=== PATIENT | female | born 1945 | race Two or more races ===

== ENCOUNTER 2024-12-03 11:54 | Outpatient (CLI) | payer MEDICAID ==
[2024-12-03 12:38] LABS: Basophils # (auto) 0.1 10 ^3/uL (0-0.2); Basophils % (auto) 0.4 % (0.0-2.0); Eosinophils # (auto) 0.2 10 ^3/uL (0-0.8); Eosinophils % (auto) 1.2 % (0.0-7.0); Hematocrit 42.9 % (36.0-46.0); Hemoglobin 13.9 g/dL (12.2-16.2); Lymphocytes # (auto) 3.5 10 ^3/uL (0.4-5.4); Lymphocytes % (auto) 27.6 % (10.0-50.0); Mean Corpuscular Hemoglobin 27.8 pg (28.0-32.0); Mean Corpuscular Hgb Conc. 32.5 g/dL (32.0-36.0); Mean Corpuscular Volume 85.5 fL (80.0-100.0); Monocytes # (auto) 1.1 10 ^3/uL (0-1.3); Monocytes % (auto) 8.9 % (0.0-12.0); Neutrophils # (auto) 7.8 10 ^3/uL (1.6-8.6); Neutrophils % (auto) 61.9 % (37.0-80.0); Nucleated Red Blood Cells % 0.1 %; Platelet Count (auto) 264 10^3/uL (140-450); Red Blood Cells 5.01 10^6/uL (4.0-5.20); White Blood Cell 12.6 10^3/uL (4.4-10.8)
[2024-12-03 12:51] LABS: Alanine Aminotransferase 16 U/L (7-40); Anion Gap 6 (5-15); BUN/Creatinine Ratio 25.7 (10.0-20.0); Blood Urea Nitrogen 19 mg/dL (9-23); Calcium 9.9 mg/dL (8.7-10.4); Carbon Dioxide 29 mmol/L (20-31); Cholesterol 155 mg/dL (< 200); Glucose 84 mg/dL (74-106); LDL Cholesterol 72 mg/dL (< 100); Potassium 3.8 mmol/L (3.5-5.1); Sodium 143 mmol/L (136-145); Triglycerides 115 mg/dL (< 150)
[2024-12-03 12:59] LABS: Aspartate Aminotransferase 12 U/L (13-40); Chloride 108 mmol/L (98-107); HDL Cholesterol 62 mg/dL (40-59)
[2024-12-03 15:18] LABS: Urine Bacteria FEW /hpf (None Seen); Urine Blood Negative /uL (Negative); Urine Clarity Clear (Clear); Urine Color Yellow (Yellow); Urine Protein, UAD Negative (Negative); Urine Squamous Epithelial Cell FEW /hpf (<5); Urine Urobilinogen Normal (Negative); Urine WBC 6 /HPF (0-5); Urine pH 5.5 (5.0-9.0)
[2024-12-04 08:07] LABS: Free Thyroxine Index 2.3 (1.2-4.9)
== END 2024-12-03 17:00 | disposition home or self-care (01) ==
LOC: LAB 11:54
PROVIDERS: ATTEND Specialist
DX: S46.001A Unspecified injury of muscle(s) and tendon(s) of the rotator cuff of right shoulder, initial encounter (principal); E11.40 Type 2 diabetes mellitus with diabetic neuropathy, unspecified; J44.9 Chronic obstructive pulmonary disease, unspecified; I25.10 Atherosclerotic heart disease of native coronary artery without angina pectoris; E55.9 Vitamin D deficiency, unspecified; H40.003 Preglaucoma, unspecified, bilateral; M41.9 Scoliosis, unspecified; M79.673 Pain in unspecified foot; Z12.11 Encounter for screening for malignant neoplasm of colon; Z12.31 Encounter for screening mammogram for malignant neoplasm of breast; Z13.1 Encounter for screening for diabetes mellitus; Z13.220 Encounter for screening for lipoid disorders; Z00.01 Encounter for general adult medical examination with abnormal findings; X58.XXXA Exposure to other specified factors, initial encounter; Y93.89 Activity, other specified; Y92.89 Other specified places as the place of occurrence of the external cause; Y99.8 Other external cause status
CPT/HCPCS: 36415; 80048; 80061; 81001; 82306; 82607; 84443; 84450; 84460; 85025

== ENCOUNTER 2025-04-09 09:15 | Outpatient (CLI) | payer MEDICAID ==
[~2025-04-09] VITALS: Ht 154.9 cm; Wt 52.6 kg
[2025-04-09] MEDS: REGADENOSON 0.4 MG/5 ML SYRG IV ONE ×2 (10:54)
[2025-04-09] MEDS ORDERED: ONDANSETRON ODT 4 MG TAB PO ONE (11:15)
[2025-04-09] MEDS ORDERED: ONDANSETRON ODT 4 MG TAB ONE (11:22)
--- NOTE | 2025-04-12 08:47 | DVHSR ---
APPROVED REPORT Exam: Nuclear Stress Test Indication: CAD BMI: 0 Stress Test Details Stress Test: Pharmacologic stress testing performed using 0.4 mg of regadenoson per 5 mL given IV ov er 10 seconds. HR Resting HR: 57 bpmMax Heart Rate (APMHR): 142.893041 bpm Max HR Achieved: 103 bpmTarget HR (85% APMHR): 120.358042 bpm % of APMHR: 72.54 Recovery HR: 70 bpm BP Resting BP: 180/69 mmHg Recovery BP: 194/80 mmHg ECG Resting ECG: Sinus Bradycardia Recovery ECG: Sinus Rhythm Clinical Reason for Termination: Completed protocol Nurse Comments Recieved pt. from [facility]. A/Ox4 on RA. Connected to registered nurse cardiac telemetry, VS stable. Rt IV flushes well. Reviewed POC. Pt. verbalized understanding of procedure including risks and side effects, agrees for stress testing. Lexiscan stress test performed per protocol. [facility] administered [facility]. Transferred to [facility]. See EHR for additional documentation. Patient was advised to return to ER is symptoms return. P atient denied symptoms upon completion of exam. Stress ECG Conclusion lvef 56% normal perfusion scan no severe ischemia noted NM EXAM: Myocardial Perfusion REST/STRESS Imaging Protocol: Rest Tc-99m/Stress Tc-99m 1 day Resting Data Rest SPECT myocardial perfusion imaging was performed in supine position 60 minutes following the int ravenous injection of 10.2 mCi of Tc-99m Sestamibi. Time of rest injection: 10:00 Date: 04/09/2025 Time of rest imagin:00 Date: 04/09/2025 Administration Route: IV Administration Site: Right Arm Pharmacologic Stress Pharmacologic stress test was performed by injecting Regadenoson 0.4 mg IV push followed by the intra venous injection of 28.2 mCi of Tc-99m Sestamibi. Time of stress injection: 10:54 Date: 04/09/2025 Time of stress imagin:54 Date: 04/09/2025 Administration Route: IV Administration Site: Right Arm Gated Stress SPECT was performed 60 minutes after stress injection. The images were gated to evaluate regional wall motion and calculate left ventricular ejection fracti on. Stress only was performed in the Supine position. Nuclear Conclusion Nuclear Findings: negative for ischemia lvef 56% normal perfusion scan no severe ischemia noted
== END 2025-04-09 17:00 | disposition home or self-care (01) ==
LOC: XYW 09:15
PROVIDERS: ATTEND Internal Medicine
DX: I10 Essential (primary) hypertension (principal); R00.1 Bradycardia, unspecified; I25.10 Atherosclerotic heart disease of native coronary artery without angina pectoris; R42 Dizziness and giddiness
CPT/HCPCS: 78452; 82962; 93017; A9500; J2785; Q0162

== ENCOUNTER 2025-06-11 15:35 | Inpatient (IN) | payer MEDICAID ==
[~2025-06-11] VITALS: Ht 160 cm; Wt 56.1 kg
[2025-06-11 16:37] LABS: Hematocrit 41.3 % (36.0-46.0); Hemoglobin 13.5 g/dL (12.2-16.2); Mean Corpuscular Hemoglobin 28.5 pg (28.0-32.0); Mean Corpuscular Volume 87.3 fL (80.0-100.0); Nucleated Red Blood Cells % 0.0 %
--- NOTE | 2025-06-11 16:38 | DVH ---
EXAM: CT CT AB PEL WO CON-NO ORAL OR IV HISTORY: lower abd pain Comparison Study: None Exam Date: 06/11/2025 04:06 PM Radiation Dose Information: CT Dose: CTDI volume is 5 mGy. Dose-length product is 248 mGy*cm TECHNIQUE: Multidetector CT of the abdomen and pelvis was performed. Imaging was performed without IV contrast. Axial, coronal and sagittal multiplanar reformats were obtained from the axial data set by the technologist. FINDINGS: Lack of intravenous contrast compromises evaluation of perfusion and for isodense lesions. Lower chest: Bibasilar atelectasis/scarring. Liver: Unremarkable Biliary system: Surgically absent gallbladder Spleen: Unremarkable Pancreas: Unremarkable. Adrenals: Unremarkable. Kidneys and ureters: No hydronephrosis. Punctate nonobstructing left renal calculus. Bowel: No obstruction. Irregular wall thickening of the sigmoid colon. Mild wall thickening of the ascending colon. Scattered colonic diverticula. Bladder: Unremarkable Reproductive organs: No abnormal mass. Lymph nodes: Unremarkable. Peritoneum: Unremarkable Vessels: Patency not evaluated on this noncontrast study. Bones and soft tissue: No aggressive osseous lesion IMPRESSION: Mild wall thickening of the ascending colon and irregular wall thickening of the sigmoid colon. These may be infectious / inflammatory or related to previous diverticulitis. However, given irregular masslike thickening in the sigmoid colon, colonoscopy should be obtained as outpatient to exclude underlying mass. Small nonobstructing left renal calculus.
[2025-06-11 16:58] LABS: Alanine Aminotransferase 12 U/L (7-40); Albumin 4.3 g/dL (3.2-4.8); Alkaline Phosphatase 106 U/L (46-116); Anion Gap 14 (5-15); BUN/Creatinine Ratio 25.9 (10.0-20.0); Blood Urea Nitrogen 14 mg/dL (9-23); Calcium 9.1 mg/dL (8.7-10.4); Carbon Dioxide 23 mmol/L (20-31); Chloride 105 mmol/L (98-107); Lipase 26 U/L (12-53); Potassium 3.8 mmol/L (3.5-5.1); Sodium 142 mmol/L (136-145); Total Protein 7.1 g/dL (5.7-8.2)
[2025-06-11 16:59] LABS: Bilirubin, Total 0.5 mg/dL (0.2-1.0)
[2025-06-11 17:01] LABS: Lactic Acid w/Reflex 2.6 mmol/L (0.4-2.0)
[2025-06-11 17:02] LABS: Glucose 134 mg/dL (74-106)
--- NOTE | 2025-06-11 17:05 | ED.PDOC ---
GI ASSESSMENT HPI Comments HPI: 79 year-old female presents to the ED with a chief complaint of intermittent lower abdominal pain as of 05/27/25. Patient reports associated symptoms of N/V as of today. Patients last BM was today, just hours ago. Patient reports taking HTN and DM medication daily, as prescribed. There are no further complaints or modifying factors at this time. Patient denies symptoms of hematemesis, weakness, fever, chills, or diarrhea. Initial Vitals BP: 202/76 HR: 92 RR: 24 O2: 95 Temp: 98.1 Past Medical History: DM, HTN Past Surgical History: Hysterectomy Social History: Smoking Cigarettes Medications: Losartan, Clonidine, Amlodipine, Aspirin, Metformin Allergies: NKA straw, laina: gen abd pain, n/v as bowel movement was here in the ED normal in color. States compliance with the medications. Patient was slightly hypertensive at the scene. HPI: Poor Historian. REVIEW OF SYSTEMS: CONSTITUTIONAL: Denies acute: fever, diaphoresis, chills, generalized weakness. HEAD: Denies acute: headache, photophobia Eyes: Denies acute: Double vision, vision loss, eye pain, eye discharge. EARS: Denies acute: tinnitus, hearing loss, ear discharge, ear pain, THROAT: Denies acute: sore throat, swelling, difficulty swallowing , pain with swallowing, change in voice. NECK: Denies acute: neck pain, neck swelling, stiff neck. HEART: Denies acute : chest pain, palpitations, LUNGS: Denies acute: SOB, wheezing, cough, hemoptysis ABDOMEN: Denies acute: diarrhea, melena , hematemesis, hematochezia SKIN: Denies acute: rash, redness, lesions, itchiness. EXTREMITIES: Denies acute: calf pain, numbness, tingling, weakness, denies pain in extremity. Denies acute: Low back pain. Neuro: Denies acute: focal neurological deficit, motor or sensory focal neurological deficit, tremors, seizure like activity, confusion, dizziness, change in mental status, loss of bowel or bladder function, cauda equina like symptoms. : Denies acute: dysuria, hematuria, flank pain, increase in urinary frequency. PSYCH: Denies acute: hallucination, suicidal ideation, homicidal ideation. FEMALE: Denies acute: abnormal vaginal bleeding, foul odor, unusual discharge. PHYSICAL EXAM: General: -----moderate---acute distress, awake and alert. Head: normocephalic, atraumatic. No raccoon's eyes, no power sign. Neck: supple, trachea is midline, no swelling. Throat: Normal phonation. Eyes:, no erythema, no purulent discharge, no proptosis, no icterus. Heart: regular rate, regular rhythm, no significant murmur appreciated. Lungs: no apparent respiratory distress, Able to speak in full sentences. No wheezing, no rhonchi, no crackles. No stridors Clear to auscultation bilaterally. Abdomen: Generalized tender to palpation, non distended, soft, no guarding, no rebound, + bowel sounds. Neuro: Awake, Alert, oriented to name, self, situation, follows commands GCS=15. Speech is normal. Skin: no petechia, no purpura, no cyanosis, non-pale, not jaundice. Lower extremities: --no - Pitting edema no deformity, no focal swelling, no calf TTP. Makes eye contact. moves all four extremities. Face: no apparent facial droop. Ambulating in the ED independently. ED COURSE: DISCLAIMER: This medical document was created using an electronic medical record system with voice recognition software and computerized dictation system. Although this document has been carefully reviewed, there might still be some phonetic and typographical errors. Occasional wrong-word or "sound-alike" substitutions may have occurred due to the inherent limitations of voice recognition software. These areas are purely typographical due to imperfections of the software programs and do not reflect any compromise in the patient's medical care. Please read the chart carefully and recognize, using context, where these substitutions have occurred. Chief Complaint: Abdominal Pain Time Seen by MD: 16:25 Reviewed Notes: Medications, Allergies Allergies: Coded Allergies: NO KNOWN ALLERGIES (Unverified , 04/09/25) Information Source: Patient Mode of Arrival: Ambulatory Timing: Weeks Duration: Since onset Severity: Moderate Associated sign and symptoms: Nausea, Vomiting, Abdominal Pain Past Medical History PAST MEDICAL HISTORY: DM, HTN Surgical History: Hysterectomy NAPPER FIXER History: Denies all NAPPER FIXER Hx Social History Smoker: Quit Greater Than 1 Year Alcohol: Denies ETOH Use Drugs: Denies Drug Use Lives In: Home Was a procedure done? Was a procedure done?: No GI differential Dx Differential Diagnosis: Constipation, Gastritis/PUD, Gastroenteritis, Inflammatory BD, UTI, Dehydration, Food Poisoning, Bacterial, Parasitic, Viral, Other (DDX include Diverticulitis, colitis, gastroenteritis, acute abdomen, SBO, enteritis, constipation, volvulus, appendicitis, Gallbladder disease, choledocolithiasis, ascending cholangitis, pancreatitis, intraAbdominal mass/neoplasm, hepatitis, UTI, pylonephritis, kidney stone, aneurysm, dissection, Inflammatory bowel disease, gastroparesis, ischemic bowel,,,,,,Food poisoning, bacterial/parasitic/viral etiology, trauma, diabetes DKA ) X-Ray, Labs, Meds, VS Vital Signs Date Time Temp Pulse Resp B/P (MAP) Pulse Ox O2 Delivery O2 Flow Rate FiO2 06/11/25 20:58 209/97 06/11/25 20:35 83 20 97 Room Air 06/11/25 20:35 98.7 89 20 209/97 (134) 96 98.7 06/11/25 15:41 98.1 92 24 202/76 95 98.1 Lab Test 06/11/25 19:04 06/11/25 17:46 06/11/25 17:09 06/11/25 16:15 Range/Units Lactic Acid Level 1.4 2.6 *H 0.4-2.0 mmol/L Troponin I High Sensitivity 3 L 4 3 L </=34 ng/L Urine Color Yellow Yellow Urine Clarity Clear Clear Urine pH 6.0 5.0-9.0 Urine Specific [place]ley 1.026 1.001-1.035 Urine Protein 1+ H Negative Urine Ketones 1+ H Negative Urine Blood Negative Negative /uL Urine Nitrite Negative Negative Urine Bilirubin Negative Negative Urine Urobilinogen 4 H Negative mg/dL Urine Leukocyte Esterase 2+ Negative /uL Urine RBC 2 0 - 4 /hpf Urine Microscopic WBC 3 0-5 /HPF Urine Squamous Epithelial Cells Few <5 /hpf Urine Bacteria Few H None Seen /hpf Urine Mucus Few None Seen Urine Glucose Normal Normal mg/dL White Blood Count 21.4 H 4.4-10.8 10^3/uL Red Blood Count 4.74 4.0-5.20 10^6/uL Hemoglobin 13.5 12.2-16.2 g/dL Hematocrit 41.3 36.0-46.0 % Mean Corpuscular Volume 87.3 80.0-100.0 fL Mean Corpuscular Hemoglobin 28.5 28.0-32.0 pg Mean Corpuscular Hemoglobin Concent 32.7 32.0-36.0 g/dL Red Cell Distribution Width 13.5 11.8-14.3 % Platelet Count 355 140-450 10^3/uL Mean Platelet Volume 9.6 6.9-10.8 fL Neutrophils (%) (Auto) 91.3 H 37.0-80.0 % Lymphocytes (%) (Auto) 5.1 L 10.0-50.0 % Monocytes (%) (Auto) 3.4 0.0-12.0 % Eosinophils (%) (Auto) 0.1 0.0-7.0 % Basophils (%) (Auto) 0.1 0.0-2.0 % Neutrophils # (Auto) 19.6 H 1.6-8.6 10 ^3/uL Lymphocytes # (Auto) 1.1 0.4-5.4 10 ^3/uL Monocytes # (Auto) 0.7 0-1.3 10 ^3/uL Eosinophils # (Auto) 0 0-0.8 10 ^3/uL Basophils # (Auto) 0 0-0.2 10 ^3/uL Nucleated Red Blood Cells 0.0 % Prothrombin Time 11.3 9.3-11.8 sec Prothrombin Time INR 1.07 0.9-1.15 Activated Partial Thromboplast Time 29.7 24.5-34.5 SEC Sodium Level 142 136-145 mmol/L Potassium Level 3.8 3.5-5.1 mmol/L Chloride Level 105 98-107 mmol/L Carbon Dioxide Level 23 20-31 mmol/L Anion Gap 14 5-15 Blood Urea Nitrogen 14 9-23 mg/dL Creatinine 0.54 L 0.550-1.02 mg/dL Glomerular Filtration Rate Calc 94 >90 mL/min BUN/Creatinine Ratio 25.9 H 10.0-20.0 Serum Glucose 134 H 74-106 mg/dL Calcium Level 9.1 8.7-10.4 mg/dL Total Bilirubin 0.5 0.2-1.0 mg/dL Aspartate Amino Transferase (AST) 23 13-40 U/L Alanine Aminotransferase (ALT) 12 7-40 U/L Alkaline Phosphatase 106 46-116 U/L Total Protein 7.1 5.7-8.2 g/dL Albumin 4.3 3.2-4.8 g/dL Lipase 26 12-53 U/L Current Medications Medications (Trade) Dose Ordered Sig/Yamil Route Start Time Stop Time Status Last Admin Lactated Ringer's 1,550 ml @ 1,000 mls/hr ONCE ONCE IV 06/11/25 18:30 06/11/25 20:02 DC 06/11/25 18:30 Vancomycin HCl 250 ml @ 250 mls/hr ONCE ONCE IV 06/11/25 19:30 06/11/25 20:29 DC 06/11/25 21:11 Clonidine HCl (Catapres Tablet) 0.2 mg ONCE ONCE PO 06/11/25 19:45 06/11/25 20:20 DC 06/11/25 20:58 Acetaminophen/ Hydrocodone Bitart (Meridian 5/325MG Tab) 1 tab Q4HP PRN PO 06/11/25 19:45 06/11/25 20:58 Ondansetron HCl (Zofran) 4 mg Q4HP PRN IV 06/11/25 19:45 06/11/25 21:11 [place] [address] Ph: [phone] DIAGNOSTIC IMAGING Diagnostic Imaging Report : [id number] Signed PATIENT: LAINA FIGUEROA ACCT: [id number] UNIT: [id number] : 1945 LOC: ER ROOM / BED: / AGE / SEX: 79 / F ADM STATUS: REG ER SERVICE 1559 ORDERING PHYSICIAN: JOSÉ MIGUEL ABRAHAM DO PROCEDURE(s): ABPL - CT AB PEL WO CON-NO ORAL OR IV REASON: lower abd pain ORDER NUMBER(s): [id number], ACCESSION NUMBER(s): [id number] EXAM: CT CT AB PEL WO CON-NO ORAL OR IV HISTORY: lower abd pain Comparison Study: None Exam Date: 06/11/2025 04:06 PM Radiation Dose Information: CT Dose: CTDI volume is 5 mGy. Dose-length product is 248 mGy*cm TECHNIQUE: Multidetector CT of the abdomen and pelvis was performed. Imaging was performed without IV contrast. Axial, coronal and sagittal multiplanar reformats were obtained from the axial data set by the technologist. FINDINGS: Lack of intravenous contrast compromises evaluation of perfusion and for isodense lesions. Lower chest: Bibasilar atelectasis/scarring. Liver: Unremarkable Biliary system: Surgically absent gallbladder Spleen: Unremarkable Pancreas: Unremarkable. Adrenals: Unremarkable. Kidneys and ureters: No hydronephrosis. Punctate nonobstructing left renal calculus. Bowel: No obstruction. Irregular wall thickening of the sigmoid colon. Mild wall thickening of the ascending colon. Scattered colonic diverticula. Bladder: Unremarkable Reproductive organs: No abnormal mass. Lymph nodes: Unremarkable. Peritoneum: Unremarkable Vessels: Patency not evaluated on this noncontrast study. Bones and soft tissue: No aggressive osseous lesion IMPRESSION: Mild wall thickening of the ascending colon and irregular wall thickening of the sigmoid colon. These may be infectious / inflammatory or related to previous diverticulitis. However, given irregular masslike thickening in the sigmoid colon, colonoscopy should be obtained as outpatient to exclude underlying mass. Small nonobstructing left renal calculus. ATED BY: REYES MUÑIZ MD DICTATED DATE/TIME: 06/11/251635 SIGNED BY: REYES MUÑIZ MD SIGNED DATE/TIME: 06/11/25 163 CC: [place] [address] Ph: [phone] DIAGNOSTIC IMAGING Diagnostic Imaging Report : [id number] Signed PATIENT: LAINA FIGUEROA ACCT: [id number] UNIT: [id number] : 1945 LOC: ER ROOM / BED: / AGE / SEX: 79 / F ADM STATUS: REG ER SERVICE 20 ORDERING PHYSICIAN: JOSÉ MIGUEL ABRAHAM DO PROCEDURE(s): CXRP - CHEST PORTABLE REASON: sepsis ORDER NUMBER(s): [id number], ACCESSION NUMBER(s): [id number] CHEST RADIOGRAPH INDICATION: sepsis TECHNIQUE: Single frontal view of the chest was obtained COMPARISON: None FINDINGS: Lines and Tubes: None Lungs: No focal consolidation. Eventration of the right hemidiaphragm. Pleura: No effusion. No pneumothorax. Cardiomediastinal contours: Unremarkable. [id number] atherosclerotic calcification uncoiling of the aorta. Bones: No acute osseous abnormality. IMPRESSION: No acute cardiopulmonary disease. ATED BY: ASHLEY COPE DO DICTATED DATE/TIME: 06/11/251853 SIGNED BY: ASHLEY COPE DO SIGNED DATE/TIME: 06/11/251853 CC: Time of 1ST Reevaluation: 17:32 Reevaluation 1ST: Unchanged Patient Education/Counseling: Diagnosis, Treatment Family Education/Counseling: No Family Present Comments MDM: patient presented with the above HPI.-abdominal pain-----workup was initiated. patient was found with the above mentioned diagnosis. the following medications were ordered: please refer to order lists of meds and tests obtained by myself Dr. Abraham. Patient ED course and VS have been stabilized. Patient has been reassessed in the ED and remained in a stable condition. Pertinent incidental findings were discussed with the patient and/or family. Patient/family voices understanding and is agreeable with plan. Patient has been observed in the ED adequate length of time to insure i mprovement/stability. Escalation of care considered: Consideration of escalation to observation or admission Patient was ADMITTED to the medicine team for further evaluation and treatment of their presentation. Sepsis protocol was initiated. All the reports of any imaging studies that were ordered by myself were reviewed by myself. Departure 1 Departure Time of Disposition: 19:56 Impression: Primary Impression: UTI (urinary tract infection) Additional Impressions: Sepsis Abdominal pain Leukocytosis Abnormal finding on CT scan Mass of colon Disposition: ADMITTED INPATIENT Admit to: [facility] Condition: Guarded Discharged With: Self Critical Care Note Critical Care Time?: Yes (35 min-critical care time only) Critical care comment: Due to a high probability of clinically significant, life threatening deterioration, the patient required my highest level of preparedness to intervene emergently and I personally spent this critical care time directly and personally managing the patient. This critical care time included obtaining a history; examining the patient; pulse oximetry; ordering and review of studies; arranging urgent treatment with development of a management plan; evaluation of patient's response to treatment; frequent reassessment; and, discussions with other providers. This critical care time was performed to assess and manage the high probability of imminent, life-threatening deterioration that could result in multi-organ failure. It was exclusive of separately billable procedures and treating other patients and teaching time. Please see my other sections and the rest of the note for further information on patient assessment and treatment. I personally scribed for JOSÉ MIGUEL ABRAHAM DO ([email or web address]) on 06/11/25 at 17:05. Electronically submitted by Jessica Rivas ([employer]). I personally scribed for JOSÉ MIGUEL ABRAHAM J DO ([email or web address]) on 06/11/25 at 17:19. Electronically submitted by Jessica Rivas ([employer]). I personally scribed for JOSÉ MIGUEL ABRAHAM J DO ([email or web address]) on 06/11/25 at 18:23. Electronically submitted by Tri Mccarty ([employer]). I personally scribed for JOSÉ MIGUEL ABRAHAM J DO ([email or web address]) on 06/11/25 at 20:23. Electronically submitted by Tri Mccarty ([employer]). I personally scribed for JOSÉ MIGUEL ABRAHAM J DO ([email or web address]) on 06/11/25 at 20:41. Electronically submitted by Tri Mccarty ([employer]). JOSÉ MIGUEL ABRAHAM DO Jun 11, 2025 17:05
[2025-06-11 18:19] LABS: Urine Protein, UAD 1+ (Negative)
[2025-06-11] MEDS: LACTATED RINGER'S 1,550 ML IV ONE (18:30)
[2025-06-11 18:45] LABS: INR 1.07 (0.9-1.15); Partial Thromboplastin Time 29.7 SEC (24.5-34.5); Prothrombin Time 11.3 sec (9.3-11.8)
--- NOTE | 2025-06-11 18:56 | DVH ---
CHEST RADIOGRAPH INDICATION: sepsis TECHNIQUE: Single frontal view of the chest was obtained COMPARISON: None FINDINGS: Lines and Tubes: None Lungs: No focal consolidation. Eventration of the right hemidiaphragm. Pleura: No effusion. No pneumothorax. Cardiomediastinal contours: Unremarkable. [id number] atherosclerotic calcification uncoiling of the aorta. Bones: No acute osseous abnormality. IMPRESSION: No acute cardiopulmonary disease.
[2025-06-11] MEDS: VANCOMYCIN 1GM/250ML KIT 250 ML IV ONE (19:30)
[2025-06-11] MEDS ORDERED: ACETAMINOPHEN 325 MG TAB PO PRN (19:45)
[2025-06-11] MEDS ORDERED: DOCUSATE SOD 100 MG CAP PO PRN (19:45)
[2025-06-11] MEDS ORDERED: DEXTROSE (50%) 50ML SYRG IV PRN (19:45)
[2025-06-11] MEDS: HYDROcodone-ACET 5/325MG TAB PO PRN (20:58)
[2025-06-11] MEDS: ONDANSETRON HCL 4 MG/2 ML VIAL IV PRN (21:11)
[2025-06-11] MEDS: MORPHINE SULFATE INJ 2 MG/ml SYRG IV ONE (21:30)
[2025-06-11] MEDS ORDERED: MORPHINE SULFATE INJ 2 MG/ml SYRG IV PRN (21:30)
[2025-06-11] MEDS ORDERED: NITROGLYCERIN 0.4 MG SL TAB SL PRN (21:30)
--- NOTE | 2025-06-11 21:30 | DVHHP2 ---
History of Present Illness Reason for Visit: Sepsis, unspecified organism History of Present Illness The patient is a 79 years old female with past medical history of diabetes mellitus and hypertension who presented to [facility] ED with complaint of acute abdominal pain. Patient reports that she has been experien cing intermittent abdominal pain associated with nausea, vomiting, chest pain, rating 710 numeric scale, getting worse that prompted this visit. Patient was seen and evaluated in the ED, laboratory data shows WBC 21.4, platelets 355, sodium 142, potassium 3.8, BUN 14, creatinine 0.54, GFR 94, glucose 134, calcium 9.1, lactic acid 2.6 trending down to 1.4, troponin 4, lipase 26, blood pressure 202/76 trending down to 164/73, heart rate 92, temperature 98.1 F, O2 saturation 97% on room air. Urinalysis positive for urinary tract infection. Abdomen/pelvis CT revealing mild wall thickening of the ascending colon and irregular wall thickening of the sigmoid colon; this may be infectious/inflammatory or related to previous diverticulitis. Patient was started on IV antibiotic regimen cefepime, please see medication orders section in the computer. On my assessment, daughter at bedside, patient denied chest pain at this moment, no headache, dizziness, diaphoresis, shortness of breaths, no diarrhea, nausea, vomiting, fever, no chills. Patient was admitted for further evaluation and medical management. Past Medical History DM, HTN Past Surgical History Hysterectomy Family History Reviewed, noncontributory to the management of this case. Past Social History The patient lives at home, denies smoking, alcohol or illicit drugs abuse. Review of Systems Constitutional: Yes: Weakness; No: Fever, Chills, Sweats, Malaise, Other Eyes: No: Pain, Vision change, Conjunctivae inflammation, Eyelid inflammation, Other, Redness ENT: No: Ear pain, Ear discharge, Nose pain, Nose discharge, Nose congestion, Mouth pain, Mouth swelling, Throat pain, Throat swelling, Other Respiratory: No: Cough, Dry, Shortness of breath, SOB with excertion, Wheezing, Hemoptysis, Pleuritic Pain, Sputum, Wheezing, Other Cardiovascular: Chest Pain; No: Palpitations, Orthopnea, Paroxysmal Noc. Dyspnea, Edema, Lt Headedness, Other Gastrointestinal: Nausea, Vomiting, Abdominal Pain; No: Diarrhea, Constipation, Melena, Hematochezia, Other Genitourinary: No Dysuria, No Frequency, No Incontinence, No Hematuria, No Retention, No Other Musculoskeletal: No: other, neck pain, shoulder pain, arm pain, back pain, hand pain, leg pain, foot pain Skin: No: Rash, Lesions, Jaundice, Bruising, Other Neurological: No: Weakness, Numbness, Incoordination, Change in speech, Confusion, Seizures, Other Allergies: Coded Allergies: NO KNOWN ALLERGIES (Unverified , 04/09/25) Medications Current Medications Medications Dose Ordered Sig/Yamil Route Start Time Stop Time Status Last Admin Dose Admin Ceftriaxone Sodium 50 ml @ 100 mls/hr DAILY@09 IV 06/12/25 09:00 Metronidazole 100 ml @ 100 mls/hr Q8HR IV 06/11/25 22:00 Clonidine HCl 0.1 mg Q4HP PRN PO 06/11/25 19:45 Metoprolol Tartrate 25 mg BID PO 06/11/25 22:00 Amlodipine Besylate 5 mg DAILY PO 06/12/25 10:00 Diagnostic Test (Pha) 1 strip ACHS 06/11/25 22:00 Insulin Human Regular ACHS SC 06/11/25 22:00 Dextrose 50 ml UD PRN IV 06/11/25 19:45 Sodium Chloride 10 ml Q8HR IV 06/11/25 22:00 Acetaminophen/ Hydrocodone Bitart 1 tab Q4HP PRN PO 06/11/25 19:45 06/11/25 20:58 1 TAB Ondansetron HCl 4 mg Q4HP PRN IV 06/11/25 19:45 06/11/25 21:11 4 MG Docusate Sodium 100 mg BIDPRN PRN PO 06/11/25 19:45 Acetaminophen 650 mg Q6HP PRN PO 06/11/25 19:45 Exam Vital Signs Vital Signs Date Time Temp Pulse Resp B/P (MAP) Pulse Ox O2 Delivery O2 Flow Rate FiO2 06/11/25 20:58 209/97 06/11/25 20:35 83 20 97 Room Air 06/11/25 20:35 98.7 98.7 General Appearance: Alert, Oriented X3, Cooperative, No acute distress HEENT: Atraumatic, PERRLA, EOMI, Mucous membr. moist/pink Respiratory: Normal air movement Cardiovascular: Regular rate, Normal S1, Normal S2, No murmurs Abdominal: Normal bowel sounds, Soft, No hepatospenomegaly, No masses, Other (Reports tenderness) Extremities: No clubbing, No cyanosis, No edema, Normal pulses, No tende rness/swelling Skin: No rashes, No significant lesion Neuro: Normal speech, Normal tone, Sensation intact, Cranial nerves 3-12 NL, Reflexes 2+, Other (Generalized weakness) Psych/Mental Status: Mental status NL, Mood NL Labs/Xrays Labs Test 06/11/25 19:04 06/11/25 17:46 06/11/25 16:15 Range/Units Lactic Acid Level 1.4 0.4-2.0 mmol/L Troponin I High Sensitivity 3 L </=34 ng/L Urine Color Yellow Yellow Urine Clarity Clear Clear Urine pH 6.0 5.0-9.0 Urine Specific [place] 1.026 1.001-1.035 Urine Protein 1+ H Negative Urine Ketones 1+ H Negative Urine Blood Negative Negative /uL Urine Nitrite Negative Negative Urine Bilirubin Negative Negative Urine Urobilinogen 4 H Negative mg/dL Urine Leukocyte Esterase 2+ Negative /uL Urine RBC 2 0 - 4 /hpf Urine Microscopic WBC 3 0-5 /HPF Urine Squamous Epithelial Cells Few <5 /hpf Urine Bacteria Few H None Seen /hpf Urine Mucus Few None Seen Urine Glucose Normal Normal mg/dL White Blood Count 21.4 H 4.4-10.8 10^3/uL Red Blood Count 4.74 4.0-5.20 10^6/uL Hemoglobin 13.5 12.2-16.2 g/dL Hematocrit 41.3 36.0-46.0 % Mean Corpuscular Volume 87.3 80.0-100.0 fL Mean Corpuscular Hemoglobin 28.5 28.0-32.0 pg Mean Corpuscular Hemoglobin Concent 32.7 32.0-36.0 g/dL Red Cell Distribution Width 13.5 11.8-14.3 % Platelet Count 355 140-450 10^3/uL Mean Platelet Volume 9.6 6.9-10.8 fL Neutrophils (%) (Auto) 91.3 H 37.0-80.0 % Lymphocytes (%) (Auto) 5.1 L 10.0-50.0 % Monocytes (%) (Auto) 3.4 0.0-12.0 % Eosinophils (%) (Auto) 0.1 0.0-7.0 % Basophils (%) (Auto) 0.1 0.0-2.0 % Neutrophils # (Auto) 19.6 H 1.6-8.6 10 ^3/uL Lymphocytes # (Auto) 1.1 0.4-5.4 10 ^3/uL Monocytes # (Auto) 0.7 0-1.3 10 ^3/uL Eosinophils # (Auto) 0 0-0.8 10 ^3/uL Basophils # (Auto) 0 0-0.2 10 ^3/uL Nucleated Red Blood Cells 0.0 % Prothrombin Time 11.3 9.3-11.8 sec Prothrombin Time INR 1.07 0.9-1.15 Activated Partial Thromboplast Time 29.7 24.5-34.5 SEC Sodium Level 142 136-145 mmol/L Potassium Level 3.8 3.5-5.1 mmol/L Chloride Level 105 98-107 mmol/L Carbon Dioxide Level 23 20-31 mmol/L Anion Gap 14 5-15 Blood Urea Nitrogen 14 9-23 mg/dL Creatinine 0.54 L 0.550-1.02 mg/dL Glomerular Filtration Rate Calc 94 >90 mL/min BUN/Creatinine Ratio 25.9 H 10.0-20.0 Serum Glucose 134 H 74-106 mg/dL Calcium Level 9.1 8.7-10.4 mg/dL Total Bilirubin 0.5 0.2-1.0 mg/dL Aspartate Amino Transferase (AST) 23 13-40 U/L Alanine Aminotransferase (ALT) 12 7-40 U/L Alkaline Phosphatase 106 46-116 U/L Total Protein 7.1 5.7-8.2 g/dL Albumin 4.3 3.2-4.8 g/dL Lipase 26 12-53 U/L PATIENT: LAINA FIGUEROA ACCT: [id number] UNIT: [id number] : 1945 LOC: ER ROOM / BED: / AGE / SEX: 79 / F ADM STATUS: REG ER SERVICE 1559 ORDERING PHYSICIAN: JOSÉ MIGUEL ABRAHAM DO PROCEDURE(s): ABPL - CT AB PEL WO CON-NO ORAL OR IV REASON: lower abd pain ORDER NUMBER(s): [id number], ACCESSION NUMBER(s): [id number] EXAM: CT CT AB PEL WO CON-NO ORAL OR IV HISTORY: lower abd pain Comparison Study: None Exam Date: 06/11/2025 04:06 PM Radiation Dose Information: CT Dose: CTDI volume is 5 mGy. Dose-length product is 248 mGy*cm TECHNIQUE: Multidetector CT of the abdomen and pelvis was performed. Imaging was performed without IV contrast. Axial, coronal and sagittal multiplanar reformats were obtained from the axial data set by the technologist. FINDINGS: Lack of intravenous contrast compromises evaluation of perfusion and for isodense lesions. Lower chest: Bibasilar atelectasis/scarring. Liver: Unremarkable Biliary system: Surgically absent gallbladder Spleen: Unremarkable Pancreas: Unremarkable. Adrenals: Unremarkable. Kidneys and ureters: No hydronephrosis. Punctate nonobstructing left renal calculus. Bowel: No obstruction. Irregular wall thickening of the sigmoid colon. Mild wall thickening of the ascending colon. Scattered colonic diverticula. Bladder: Unremarkable Reproductive organs: No abnormal mass. Lymph nodes: Unremarkable. Peritoneum: Unremarkable Vessels: Patency not evaluated on this noncontrast study. Bones and soft tissue: No aggressive osseous lesion IMPRESSION: Mild wall thickening of the ascending colon and irregular wall thickening of the sigmoid colon. These may be infectious/inflammatory or related to previous diverticulitis. However, given irregular masslike thickening in the sigmoid colon, colonoscopy should be obtained as outpatient to exclude underlying mass. Small nonobstructing left renal calculus. ORDERING PHYSICIAN: JOSÉ MIGUEL ABRAHAM DO PROCEDURE(s): CXRP - CHEST PORTABLE REASON: sepsis ORDER NUMBER(s): [id number], ACCESSION NUMBER(s): [id number] CHEST RADIOGRAPH INDICATION: sepsis TECHNIQUE: Single frontal view of the chest was obtained COMPARISON: None FINDINGS: Lines and Tubes: None Lungs: No focal consolidation. Eventration of the right hemidiaphragm. Pleura: No effusion. No pneumothorax. Cardiomediastinal contours: Unremarkable. [id number] atherosclerotic calcification uncoiling of the aorta. Bones: No acute osseous abnormality. IMPRESSION: No acute cardiopulmonary disease. SEPSIS Sepsis Screen Date sepsis recognized/suspect: Jun 11, 2025 Time Sepsis recognized/suspect: 2045 Recent Procedure: No On Antibiotic Therapy: No Respiratory Rate >20: No Heart Rate >90: No Temp<36 C (96.8 F) or >38.3 C: No SBP <90 or MAP <65 mmHG: No New Acute Mental Status Change: No Is the patient on CPAP, BIPAP,: No Physician Orders Breaker Table Worker (06/11/25 ) Ct Ab Pel Wo Con-No Oral Or Iv (06/11/25 15:59) Chest Portable (06/11/25 18:21) Accucheck (06/11/25 18:21) Blood Culture (06/11/25 18:21) Cefepime 1gm/50ml (Maxipime 1gm/50ml) (06/11/25 18:30) Notify Md If Map <65 Or Bp<90 (06/11/25 18:21) If Map<65 Start Vasopressor (06/11/25 18:21) Sepsis Reassesment After Fluid (06/11/25 19:21) Ceftriaxone 1gm/50ml (Rocephin) (06/12/25 09:00) Metronidazole 500mg/100ml (Flagyl 500mg/ (06/11/25 22:00) Urine Bacterial Culture (06/11/25 19:42) Clonidine Hcl Tablet (Catapres Tablet) (06/11/25 19:45) Metoprolol Tartrate Tablet (Lopressor Ta (06/11/25 22:00) Glucose Blood (Accu-Chek Comfort Curve T (06/11/25 22:00) Insulin R (Human) (Insulin R) (06/11/25 22:00) Dextrose 50% Syringe (06/11/25 19:45) Allergies (06/11/25 19:42) Code Status (06/11/25 19:42) Sodium Chloride Lock (Saline Lock Ns) (06/11/25 22:00) Oxygen Per Hour (06/11/25 19:42) Hydrocodone-Acet 5/325mg Tab ([place] 5/32 (06/11/25 19:45) Ondansetron Hcl (Zofran) (06/11/25 19:45) Docusate Sodium Capsule (Colace Capsule) (06/11/25 19:45) Fall Risk Precautions In Place QSHIFT (06/11/25 19:42) Complete Blood Count (06/12/25 04:00) Comprehensive Metabolic Panel (06/12/25 04:00) Condition: Serious (06/11/25 19:42) Acetaminophen Tablet (Tylenol Tablet) (06/11/25 19:45) Clear Liq Diet (06/12/25 Breakfast) Maintain Bed Rest (06/11/25 19:42) Sequential Compression Device (06/11/25 ) Amlodipine Tablet (Norvasc Tablet) (06/12/25 10:00) Morphine Sulfate Injection (06/11/25 21:30) Vital Signs Date Time Temp Pulse Resp B/P (MAP) Pulse Ox O2 Delivery O2 Flow Rate FiO2 06/11/25 20:58 209/97 06/11/25 20:35 83 20 97 Room Air 06/11/25 20:35 98.7 89 20 209/ (134) 96 98.7 06/11/25 15:41 98.1 92 24 202/76 95 98.1 Laboratory Tests Test 06/11/25 16:15 06/11/25 19:04 Lactic Acid Level 2.6 mmol/L (0.4-2.0) *H 1.4 mmol/L (0.4-2.0) White Blood Count 21.4 10^3/uL (4.4-10.8) H Medications Medications Dose Ordered Sig/Yamil Route Start Time Stop Time Status Last Admin Dose Admin Acetaminophen/ Hydrocodone Bitart 1 tab Q4HP PRN PO 06/11/25 19:45 06/11/25 20:58 1 TAB Clonidine HCl 0.2 mg ONCE ONCE PO 06/11/25 19:45 06/11/25 20:20 DC 06/11/25 20:58 0.2 MG Lactated Ringer's 1,550 ml @ 1,000 mls/hr ONCE ONCE IV 06/11/25 18:30 06/11/25 20:02 DC 06/11/25 18:30 1,000 MLS/HR Ondansetron HCl 4 mg Q4HP PRN IV 06/11/25 19:45 06/11/25 21:11 4 MG Vancomycin HCl 250 ml @ 250 mls/hr ONCE ONCE IV 06/11/25 19:30 06/11/25 20:29 DC 06/11/25 21:11 250 MLS/HR Assessment/Plan Assessment/Plan Sepsis, unspecified organism Acute abdominal pain Hypertensive urgency UTI (urinary tract infection) Generalized weakness Plan 1. Admit to telemetry unit 2. Breathing treatment 3. Pain control management 4. IV antibiotic management 5. Management of fluids and electrolytes 6. Consultation for hospitalist 7. Diagnostic test abdomen/pelvis CT 8. DVT prophylaxis-on SCDs 9. Repeat labs CBC, CMP in a.m. 10. Home medication reviewed and reconciled 11. Continue with current medical management 12. Treatment plan discussed with patient and RN. Patient verbalized understanding. Plan discussed with: Patient, Daughter, Other (RN) My Orders Orders - ARIEL CALIXTO DNP Procedure Category Date Status Time Ceftriaxone 1gm/50ml PHA 06/12/25 In Process (Rocephin) 09:00 Metronidazole PHA 06/11/25 In Process 500mg/100ml (Flagyl 22:00 Urine Bacterial SHIRA 06/11/25 In Process Culture 19:42 Clonidine Hcl Tablet PHA 06/11/25 In Process (Catapres Tablet) 19:45 Metoprolol Tartrate PHA 06/11/25 In Process Tablet (Lopressor Ta 22:00 Glucose Blood PHA 06/11/25 In Process (Accu-Chek Comfort 22:00 Insulin R (Human) PHA 06/11/25 In Process (Insulin R) 22:00 Dextrose 50% Syringe PHA 06/11/25 In Process 19:45 Allergies SONIA 06/11/25 In Process 19:42 Code Status CODE 06/11/25 Transmitted 19:42 Sodium Chloride Lock PHA 06/11/25 In Process (Saline Lock Ns) 22:00 Oxygen Per Hour RT 06/11/25 Transmitted 19:42 Hydrocodone-Acet PHA 06/11/25 In Process 5/325mg Tab ([place] 19:45 Ondansetron Hcl PHA 06/11/25 In Process (Zofran) 19:45 Docusate Sodium PHA 06/11/25 In Process Capsule (Colace 19:45 Fall Risk Precautions SONIA 06/11/[address] 19:42 Complete Blood Count LAB 06/12/25 Verified 04:00 Comprehensive LAB 06/12/25 Verified Metabolic Panel 04:00 Condition: Serious SONIA 06/11/25 In Process 19:42 Acetaminophen Tablet PHA 06/11/25 In Process (Tylenol Tablet) 19:45 Clear Liq Diet DIET 06/12/25 Transmitted Breakfast Maintain Bed Rest SONIA 06/11/25 In Process 19:42 Sequential SONIA 06/11/25 In Process Compression Device Amlodipine Tablet PHA 06/12/25 In Process (Norvasc Tablet) 10:00 Morphine Sulfate PHA 06/11/25 In Process Injection 21:30 Problem List: (1) Sepsis, unspecified organism (2) Acute abdominal pain (3) Hypertensive urgency (4) UTI (urinary tract infection) (5) Generalized weakness Date of Service: Jun 11, 2025 Billing Provider: ARIEL CALIXTO DNP Common Visit Codes: [id number] INP/OBS CARE (HIGH) ARIEL CALIXTO DNP Jun 11, 2025 21:30
[2025-06-11] MEDS: SODIUM CHLOR 0.9% PF (SALINE LOCK) 10ML VIAL/SYR IV SCH (22:00)
[2025-06-11] MEDS: InsuLIN REG 1unit/0.01ml Soln (100units/ml) SC SCH (22:00)
[2025-06-11] MEDS: ACCU-CHEK COMFORT CURVE STRIP VI SCH (22:00)
[2025-06-11] MEDS: METOPROLOL TARTRATE 25 MG TAB PO SCH (22:00)
[2025-06-11] MEDS: CEFEPIME 1GM/50ML 50 ML IV ONE (23:44)
[2025-06-12] VITALS (9 sets, daily range): BP systolic 108–136; BP diastolic 45–65; PULSE 60–82; RESP 17–20; TEMP 98–99.9; O2SAT 89–94
[2025-06-12] MEDS ORDERED: AMLO1TAB22 PO (01:00)
[2025-06-12] MEDS ORDERED: METF-370 PO (01:00)
[2025-06-12] MEDS ORDERED: ASPI81CH59 PO (01:00)
[2025-06-12] MEDS ORDERED: LOSA-533 PO (01:00)
[2025-06-12] MEDS ORDERED: CLON0.1T PO (01:00)
[2025-06-12] MEDS ORDERED: LANS30CA57 PO (01:00)
[2025-06-12 06:15] LABS: Hematocrit 32.5 % (36.0-46.0); Hemoglobin 10.6 g/dL (12.2-16.2); Mean Corpuscular Hemoglobin 28.8 pg (28.0-32.0); Mean Corpuscular Volume 88.2 fL (80.0-100.0); Nucleated Red Blood Cells % 0.1 %
[2025-06-12 06:27] LABS: Alanine Aminotransferase 10 U/L (7-40); Alkaline Phosphatase 79 U/L (46-116); Anion Gap 9 (5-15); Carbon Dioxide 25 mmol/L (20-31); Chloride 105 mmol/L (98-107); Potassium 3.8 mmol/L (3.5-5.1); Sodium 139 mmol/L (136-145); Total Protein 5.7 g/dL (5.7-8.2)
[2025-06-12 06:28] LABS: Albumin 3.4 g/dL (3.2-4.8); BUN/Creatinine Ratio 25.5 (10.0-20.0); Bilirubin, Total 0.7 mg/dL (0.2-1.0); Blood Urea Nitrogen 12 mg/dL (9-23)
[2025-06-12 06:30] LABS: Calcium 8.2 mg/dL (8.7-10.4); Glucose 126 mg/dL (74-106)
[2025-06-12] MEDS ORDERED: MORPHINE SULFATE 4 MG/ML SYR/VIAL IV PRN (12:00)
--- NOTE | 2025-06-12 15:45 | DVHPN2 ---
Subjective still having diarrhea Reason for visit: Colitis Reviewed: H&P Changes from previous H/P or p: No Changes Eyes: No Pain, No Vision change, No Conjunctivae inflammation, No Eyelid inflammation, No Other, No Redness ENT: No Ear pain, No Ear discharge, No Nose pain, No Nose discharge, No Nose congestion, No Mouth pain, No Mouth swelling, No Throat pain, No Throat swelling, No Other Cardiovascular: Chest Pain; No Palpitations, No Orthopnea, No Paroxysmal Noc. Dyspnea, No Edema, No Lt Headedness, No Other Respiratory: No Cough, No Dry, No Shortness of breath, No SOB with excertion, No Wheezing, No Hemoptysis, No Pleuritic Pain, No Sputum, No Other Gastrointestinal: Nausea, Vomiting, Abdominal Pain; No Diarrhea, No Constipation, No Melena, No Hematochezia, No Other Genitourinary: No Dysuria, No Frequency, No Incontinence, No Hematuria, No Retention, No Other Musculoskeletal: No other, No neck pain, No shoulder pain, No arm pain, No back pain, No hand pain, No leg pain, No foot pain Skin: No Rash, No Lesions, No Jaundice, No Bruising, No Other Objective Vitals Vital Signs Date Time Temp Pulse Resp B/P (MAP) Pulse Ox O2 Delivery O2 Flow Rate FiO2 06/12/25 12:59 98.0 69 18 134/52 (79) 91 98.0 06/12/25 08:00 Room Air* 0 21 Intake/Output Intake and Output 06/12/25 05:00 Intake Total 250 ml Balance 250 ml Intake Oral 100 ml IV Total 150 ml # Voids 1 General Appearance: Alert, Oriented X3 HEENT: Atraumatic Cardiovascular: Regular rate, Normal S1, Normal S2 Abdomen: Normal bowel sounds Medications Current Medications Medications Dose Ordered Sig/Yamil Route Start Time Stop Time Status Last Admin Dose Admin Ceftriaxone Sodium 50 ml @ 100 mls/hr DAILY@09 IV 06/12/25 09:00 06/12/25 08:54 100 MLS/HR Clonidine HCl 0.1 mg Q4HP PRN PO 06/11/25 19:45 Metoprolol Tartrate 25 mg BID PO 06/11/25 22:00 06/12/25 08:55 25 MG Amlodipine Besylate 5 mg DAILY PO 06/12/25 10:00 06/12/25 08:55 5 MG Diagnostic Test (Pha) 1 strip ACHS 06/11/25 22:00 06/12/25 11:49 1 STRIP Insulin Human Regular ACHS SC 06/11/25 22:00 Dextrose 50 ml UD PRN IV 06/11/25 19:45 Sodium Chloride 10 ml Q8HR IV 06/11/25 22:00 06/12/25 13:22 10 ML Acetaminophen/ Hydrocodone Bitart 1 tab Q4HP PRN PO 06/11/25 19:45 06/12/25 13:58 1 TAB Ondansetron HCl 4 mg Q4HP PRN IV 06/11/25 19:45 06/11/25 21:11 4 MG Docusate Sodium 100 mg BIDPRN PRN PO 06/11/25 19:45 Acetaminophen 650 mg Q6HP PRN PO 06/11/25 19:45 Nitroglycerin 0.4 mg Q5MINP PRN SL 06/11/25 21:30 Metronidazole 100 ml @ 100 mls/hr Q8H IV 06/12/25 02:00 06/12/25 08:54 100 MLS/HR Morphine Sulfate 2 mg Q30M PRN IV 06/12/25 12:00 Laboratory Results Laboratory Tests 06/12/25 05:40 Chemistry Test 06/11/25 16:15 06/12/25 05:40 Albumin 4.3 g/dL (3.2-4.8) 3.4 g/dL (3.2-4.8) Calcium Level 9.1 mg/dL (8.7-10.4) 8.2 mg/dL (8.7-10.4) L Total Protein 7.1 g/dL (5.7-8.2) 5.7 g/dL (5.7-8.2) Coagulation Test 06/11/25 16:15 Prothrombin Time 11.3 sec (9.3-11.8) Prothrombin Time INR 1.07 (0.9-1.15) Activated Partial Thromboplast Time 29.7 SEC (24.5-34.5) Lipid panel Test 06/11/25 16:15 Lipase 26 U/L (12-53) LFT Test 06/11/25 16:15 06/12/25 05:40 Alanine Aminotransferase (ALT) 12 U/L (7-40) 10 U/L (7-40) Alkaline Phosphatase 106 U/L (46-116) 79 U/L (46-116) Aspartate Amino Transferase (AST) 23 U/L (13-40) 20 U/L (13-40) Total Bilirubin 0.5 mg/dL (0.2-1.0) 0.7 mg/dL (0.2-1.0) Urinalysis Test 06/11/25 17:46 Urine Color Yellow (Yellow) Urine Clarity Clear (Clear) Urine pH 6.0 (5.0-9.0) Urine Specific [place] 1.026 (1.001-1.035) Urine Protein 1+ (Negative) H Urine Ketones 1+ (Negative) H Urine Blood Negative /uL (Negative) Urine Nitrite Negative (Negative) Urine Bilirubin Negative (Negative) Urine Urobilinogen 4 mg/dL (Negative) H Urine Leukocyte Esterase 2+ /uL (Negative) Urine RBC 2 /hpf (0 - 4) Urine Microscopic WBC 3 /HPF (0-5) Urine Squamous Epithelial Cells Few /hpf (<5) Urine Bacteria Few /hpf (None Seen) H Urine Mucus Few (None Seen) Urine Glucose Normal mg/dL (Normal) Microbiology Microbiology Date/Time Source Procedure Growth Status 06/11/25 17:46 Voided Urine Urine Culture - Preliminary Resulted Assessment/Plan Assessment/Plan Sepsis due to colitis Acute abdominal pain Hypertensive urgency UTI (urinary tract infection) Generalized weakness Ureteral stone Continue IV abx Advance diet IVF Monitor labs daily Plan discussed with: Patient Date of Service: Jun 12, 2025 Billing Provider: LIYAH DOYLE MD Common Visit Codes: [id number] INP/OBS CARE(HIGH) LIYAH DOYLE MD Jun 12, 2025 15:45
[2025-06-13] VITALS (9 sets, daily range): BP systolic 123–188; BP diastolic 50–79; PULSE 65–86; RESP 17–20; TEMP 96.7–99.5; O2SAT 90–94
[2025-06-13] MEDS ORDERED: CITA10TA8 PO (10:10)
[2025-06-13 11:33] LABS: Hematocrit 34.8 % (36.0-46.0); Hemoglobin 11.3 g/dL (12.2-16.2); Mean Corpuscular Hemoglobin 28.2 pg (28.0-32.0); Mean Corpuscular Volume 86.9 fL (80.0-100.0); Nucleated Red Blood Cells % 0.0 %
[2025-06-13 11:44] LABS: Chloride 105 mmol/L (98-107); Potassium 3.9 mmol/L (3.5-5.1); Sodium 143 mmol/L (136-145)
[2025-06-13 11:45] LABS: Anion Gap 9 (5-15); Calcium 8.8 mg/dL (8.7-10.4); Carbon Dioxide 29 mmol/L (20-31)
[2025-06-13 11:50] LABS: BUN/Creatinine Ratio 17.5 (10.0-20.0); Blood Urea Nitrogen 10 mg/dL (9-23); Glucose 97 mg/dL (74-106)
[2025-06-13] MEDS: CITALOPRAM HYDROBR 20 MG TAB PO SCH (12:59)
--- NOTE | 2025-06-13 16:20 | DVHPN2 ---
Subjective still having diarrhea Reason for visit: Colitis Reviewed: H&P Changes from previous H/P or p: No Changes Eyes: No Pain, No Vision change, No Conjunctivae inflammation, No Eyelid inflammation, No Other, No Redness ENT: No Ear pain, No Ear discharge, No Nose pain, No Nose discharge, No Nose congestion, No Mouth pain, No Mouth swelling, No Throat pain, No Throat swelling, No Other Cardiovascular: Chest Pain; No Palpitations, No Orthopnea, No Paroxysmal Noc. Dyspnea, No Edema, No Lt Headedness, No Other Respiratory: No Cough, No Dry, No Shortness of breath, No SOB with excertion, No Wheezing, No Hemoptysis, No Pleuritic Pain, No Sputum, No Other Gastrointestinal: Nausea, Vomiting, Abdominal Pain; No Diarrhea, No Constipation, No Melena, No Hematochezia, No Other Genitourinary: No Dysuria, No Frequency, No Incontinence, No Hematuria, No Retention, No Other Musculoskeletal: No other, No neck pain, No shoulder pain, No arm pain, No back pain, No hand pain, No leg pain, No foot pain Skin: No Rash, No Lesions, No Jaundice, No Bruising, No Other Objective Vitals Vital Signs Date Time Temp Pulse Resp B/P (MAP) Pulse Ox O2 Delivery O2 Flow Rate FiO2 06/13/25 14:41 65 143/50 (81) 06/13/25 12:41 99.5 18 94 99.5 06/13/25 08:00 Room Air* 0 21 Intake/Output Intake and Output 06/13/25 05:00 Intake Total 1575 ml Balance 1575 ml Intake Oral 1325 ml IV Total 250 ml # Voids 6 # Bowel Movements 2 General Appearance: Alert, Oriented X3 HEENT: Atraumatic Cardiovascular: Regular rate, Normal S1, Normal S2 Abdomen: Normal bowel sounds Medications Current Medications Medications Dose Ordered Sig/Yamil Route Start Time Stop Time Status Last Admin Dose Admin Ceftriaxone Sodium 50 ml @ 100 mls/hr DAILY@09 IV 06/12/25 09:00 06/13/25 08:28 100 MLS/HR Clonidine HCl 0.1 mg Q4HP PRN PO 06/11/25 19:45 Metoprolol Tartrate 25 mg BID PO 06/11/25 22:00 06/13/25 10:20 25 MG Amlodipine Besylate 5 mg DAILY PO 06/12/25 10:00 06/13/25 10:20 5 MG Diagnostic Test (Pha) 1 strip ACHS 06/11/25 22:00 06/13/25 11:46 1 STRIP Insulin Human Regular ACHS SC 06/11/25 22:00 Dextrose 50 ml UD PRN IV 06/11/25 19:45 Sodium Chloride 10 ml Q8HR IV 06/11/25 22:00 06/13/25 14:00 10 ML Acetaminophen/ Hydrocodone Bitart 1 tab Q4HP PRN PO 06/11/25 19:45 06/13/25 12:58 1 TAB Ondansetron HCl 4 mg Q4HP PRN IV 06/11/25 19:45 06/11/25 21:11 4 MG Docusate Sodium 100 mg BIDPRN PRN PO 06/11/25 19:45 Acetaminophen 650 mg Q6HP PRN PO 06/11/25 19:45 Nitroglycerin 0.4 mg Q5MINP PRN SL 06/11/25 21:30 Metronidazole 100 ml @ 100 mls/hr Q8H IV 06/12/25 02:00 06/13/25 10:20 100 MLS/HR Morphine Sulfate 2 mg Q30M PRN IV 06/12/25 12:00 Citalopram Hydrobromide 10 mg DAILY PO 06/13/25 10:00 06/13/25 12:59 10 MG Laboratory Results Laboratory Tests 06/13/25 10:45 Chemistry Test 06/13/25 10:45 Calcium Level 8.8 mg/dL (8.7-10.4) Urinalysis Test 06/11/25 17:46 Urine Color Yellow (Yellow) Urine Clarity Clear (Clear) Urine pH 6.0 (5.0-9.0) Urine Specific [place] 1.026 (1.001-1.035) Urine Protein 1+ (Negative) H Urine Ketones 1+ (Negative) H Urine Blood Negative /uL (Negative) Urine Nitrite Negative (Negative) Urine Bilirubin Negative (Negative) Urine Urobilinogen 4 mg/dL (Negative) H Urine Leukocyte Esterase 2+ /uL (Negative) Urine RBC 2 /hpf (0 - 4) Urine Microscopic WBC 3 /HPF (0-5) Urine Squamous Epithelial Cells Few /hpf (<5) Urine Bacteria Few /hpf (None Seen) H Urine Mucus Few (None Seen) Urine Glucose Normal mg/dL (Normal) Microbiology Microbiology Date/Time Source Procedure Growth Status 06/11/25 19:30 Blood Blood Culture - Preliminary NO GROWTH AFTER 24 HOURS OF INCUBATION. Resulted 06/11/25 17:46 Voided Urine Urine Culture - Final Complete Assessment/Plan Assessment/Plan Sepsis due to colitis Acute abdominal pain Hypertensive urgency UTI (urinary tract infection) Generalized weakness Ureteral stone Continue IV abx Advance diet IVF Monitor labs daily Plan discussed with: Patient My Orders Orders - LIYAH DOYLE MD Procedure Category Date Status Time Complete Blood Count LAB 06/14/25 Verified 05:00 Complete Blood Count LAB 06/15/25 Verified 05:00 Complete Blood Count LAB 06/16/25 Verified 05:00 Complete Blood Count LAB 06/17/25 Verified 05:00 Complete Blood Count LAB 06/18/25 Verified 05:00 Basic Metabolic Panel LAB 06/14/25 Verified 05:00 Basic Metabolic Panel LAB 06/15/25 Verified 05:00 Basic Metabolic Panel LAB 06/16/25 Verified 05:00 Basic Metabolic Panel LAB 06/17/25 Verified 05:00 Basic Metabolic Panel LAB 06/18/25 Verified 05:00 Citalopram Tablet PHA 06/13/25 In Process (Celexa Tablet) 10:00 Date of Service: Jun 13, 2025 Billing Provider: LIYAH DOYLE MD Common Visit Codes: [id number] INP/OBS CARE(HIGH) LIYAH DOYLE MD Jun 13, 2025 16:20
[2025-06-14] VITALS (8 sets, daily range): BP systolic 126–167; BP diastolic 53–81; PULSE 57–84; RESP 16–20; TEMP 98.2–98.7; O2SAT 91–94
[2025-06-14 06:07] LABS: Hematocrit 33.3 % (36.0-46.0); Hemoglobin 11.0 g/dL (12.2-16.2); Mean Corpuscular Hemoglobin 28.7 pg (28.0-32.0); Mean Corpuscular Volume 86.9 fL (80.0-100.0); Nucleated Red Blood Cells % 0.3 %
[2025-06-14 06:23] LABS: Sodium 144 mmol/L (136-145)
[2025-06-14 06:24] LABS: Anion Gap 9 (5-15); Carbon Dioxide 27 mmol/L (20-31)
[2025-06-14 06:28] LABS: Calcium 8.0 mg/dL (8.7-10.4); Chloride 108 mmol/L (98-107); Potassium 3.4 mmol/L (3.5-5.1)
[2025-06-14 06:29] LABS: BUN/Creatinine Ratio 23.8 (10.0-20.0); Blood Urea Nitrogen 10 mg/dL (9-23); Glucose 86 mg/dL (74-106)
--- NOTE | 2025-06-14 15:39 | DVHPN2 ---
Subjective still having diarrhea Reason for visit: Colitis Reviewed: H&P Changes from previous H/P or p: No Changes Eyes: No Pain, No Vision change, No Conjunctivae inflammation, No Eyelid inflammation, No Other, No Redness ENT: No Ear pain, No Ear discharge, No Nose pain, No Nose discharge, No Nose congestion, No Mouth pain, No Mouth swelling, No Throat pain, No Throat swelling, No Other Cardiovascular: Chest Pain Respiratory: No Cough, No Dry, No Shortness of breath, No SOB with excertion, No Wheezing, No Hemoptysis, No Pleuritic Pain, No Sputum, No Other Gastrointestinal: Nausea, Vomiting, Abdominal Pain Genitourinary: No Dysuria, No Frequency, No Incontinence, No Hematuria, No Retention, No Other Musculoskeletal: No other, No neck pain, No shoulder pain, No arm pain, No back pain, No hand pain, No leg pain, No foot pain Skin: No Rash, No Lesions, No Jaundice, No Bruising, No Other Objective Vitals Vital Signs Date Time Temp Pulse Resp B/P (MAP) Pulse Ox O2 Delivery O2 Flow Rate FiO2 06/14/25 12:51 98.2 59 16 148/66 (93) 94 98.2 06/14/25 08:00 Room Air* 0 21 Intake/Output Intake and Output 06/14/25 07:00 Intake Total 1100 ml Balance 1100 ml Intake Oral 1000 ml IV Total 100 ml # Voids 4 # Bowel Movements 3 General Appearance: Alert, Oriented X3 HEENT: Atraumatic Cardiovascular: Regular rate, Normal S1, Normal S2 Abdomen: Normal bowel sounds Medications Current Medications Medications Dose Ordered Sig/Yamil Route Start Time Stop Time Status Last Admin Dose Admin Ceftriaxone Sodium 50 ml @ 100 mls/hr DAILY@09 IV 06/12/25 09:00 06/14/25 09:10 100 MLS/HR Clonidine HCl 0.1 mg Q4HP PRN PO 06/11/25 19:45 06/14/25 06:02 0.1 MG Metoprolol Tartrate 25 mg BID PO 06/11/25 22:00 06/14/25 09:09 25 MG Amlodipine Besylate 5 mg DAILY PO 06/12/25 10:00 06/14/25 09:09 5 MG Diagnostic Test (Pha) 1 strip ACHS 06/11/25 22:00 06/14/25 11:26 1 STRIP Insulin Human Regular ACHS SC 06/11/25 22:00 Dextrose 50 ml UD PRN IV 06/11/25 19:45 Sodium Chloride 10 ml Q8HR IV 06/11/25 22:00 06/14/25 14:13 10 ML Acetaminophen/ Hydrocodone Bitart 1 tab Q4HP PRN PO 06/11/25 19:45 06/14/25 06:02 1 TAB Ondansetron HCl 4 mg Q4HP PRN IV 06/11/25 19:45 06/11/25 21:11 4 MG Docusate Sodium 100 mg BIDPRN PRN PO 06/11/25 19:45 Acetaminophen 650 mg Q6HP PRN PO 06/11/25 19:45 Nitroglycerin 0.4 mg Q5MINP PRN SL 06/11/25 21:30 Metronidazole 100 ml @ 100 mls/hr Q8H IV 06/12/25 02:00 06/14/25 09:10 100 MLS/HR Morphine Sulfate 2 mg Q30M PRN IV 06/12/25 12:00 Citalopram Hydrobromide 10 mg DAILY PO 06/13/25 10:00 06/14/25 09:09 10 MG Laboratory Results Laboratory Tests 06/14/25 05:23 Chemistry Test 06/14/25 05:23 Calcium Level 8.0 mg/dL (8.7-10.4) L Urinalysis Test 06/11/25 17:46 Urine Color Yellow (Yellow) Urine Clarity Clear (Clear) Urine pH 6.0 (5.0-9.0) Urine Specific [place] 1.026 (1.001-1.035) Urine Protein 1+ (Negative) H Urine Ketones 1+ (Negative) H Urine Blood Negative /uL (Negative) Urine Nitrite Negative (Negative) Urine Bilirubin Negative (Negative) Urine Urobilinogen 4 mg/dL (Negative) H Urine Leukocyte Esterase 2+ /uL (Negative) Urine RBC 2 /hpf (0 - 4) Urine Microscopic WBC 3 /HPF (0-5) Urine Squamous Epithelial Cells Few /hpf (<5) Urine Bacteria Few /hpf (None Seen) H Urine Mucus Few (None Seen) Urine Glucose Normal mg/dL (Normal) Microbiology Microbiology Date/Time Source Procedure Growth Status 06/11/25 19:30 Blood Blood Culture - Preliminary NO GROWTH AFTER 48 HOURS OF INCUBATION. Resulted 06/11/25 17:46 Voided Urine Urine Culture - Final Complete Assessment/Plan Assessment/Plan Sepsis due to colitis Acute abdominal pain Hypertensive urgency UTI (urinary tract infection) Generalized weakness Ureteral stone Continue IV abx Advance diet IVF Monitor labs daily Plan discussed with: Patient My Orders Orders - LIYAH DOYLE MD Procedure Category Date Status Time Mechanical Soft Diet DIET 06/14/25 Transmitted Lunch Date of Service: Jun 14, 2025 Billing Provider: LIYAH DOYLE MD Common Visit Codes: [id number] INP/OBS CARE(HIGH) LIYAH DOYLE MD Jun 14, 2025 15:39
[2025-06-15 01:00] VITALS: BP 141/51; PULSE 60; RESP 20; TEMP 98.6; O2SAT 94
[2025-06-15 05:00] VITALS: BP 133/76; PULSE 68; RESP 18; TEMP 98; O2SAT 91
[2025-06-15 06:07] LABS: Hematocrit 32.7 % (36.0-46.0); Hemoglobin 10.7 g/dL (12.2-16.2); Mean Corpuscular Hemoglobin 28.4 pg (28.0-32.0); Mean Corpuscular Volume 86.5 fL (80.0-100.0); Nucleated Red Blood Cells % 0.0 %
[2025-06-15 06:10] LABS: Anion Gap 10 (5-15); Carbon Dioxide 26 mmol/L (20-31)
[2025-06-15 06:15] LABS: Calcium 8.2 mg/dL (8.7-10.4); Chloride 109 mmol/L (98-107); Potassium 3.2 mmol/L (3.5-5.1); Sodium 145 mmol/L (136-145)
[2025-06-15 06:16] LABS: BUN/Creatinine Ratio 15.6 (10.0-20.0); Blood Urea Nitrogen 7 mg/dL (9-23); Glucose 94 mg/dL (74-106)
[2025-06-15 08:00] VITALS: PULSE 75
[2025-06-15] MEDS ORDERED: AUG875T PO (08:56)
[2025-06-15 09:08] VITALS: BP 166/78; PULSE 65; RESP 16; TEMP 98.1; O2SAT 99
--- NOTE | 2025-06-15 10:48 | DVHDS2 ---
Discharge Summary Date of Admission Jun 11, 2025 at 21:28 Date of Discharge: Jun 15, 2025 Labs/Diagnostic Data: Laboratory Results Test 06/15/25 05:21 06/14/25 21:27 06/12/25 05:40 06/11/25 19:04 White Blood Count 15.0 10^3/uL (4.4-10.8) Red Blood Count 3.78 10^6/uL (4.0-5.20) Hemoglobin 10.7 g/dL (12.2-16.2) Hematocrit 32.7 % (36.0-46.0) Mean Corpuscular Volume 86.5 fL (80.0-100.0) Mean Corpuscular Hemoglobin 28.4 pg (28.0-32.0) Mean Corpuscular Hemoglobin Concent 32.9 g/dL (32.0-36.0) Red Cell Distribution Width 13.4 % (11.8-14.3) Platelet Count 276 10^3/uL (140-450) Mean Platelet Volume 9.6 fL (6.9-10.8) Neutrophils (%) (Auto) 80.6 % (37.0-80.0) Lymphocytes (%) (Auto) 9.8 % (10.0-50.0) Monocytes (%) (Auto) 8.5 % (0.0-12.0) Eosinophils (%) (Auto) 1.0 % (0.0-7.0) Basophils (%) (Auto) 0.1 % (0.0-2.0) Neutrophils # (Auto) 12.1 10 ^3/uL (1.6-8.6) Lymphocytes # (Auto) 1.5 10 ^3/uL (0.4-5.4) Monocytes # (Auto) 1.3 10 ^3/uL (0-1.3) Eosinophils # (Auto) 0.1 10 ^3/uL (0-0.8) Basophils # (Auto) 0 10 ^3/uL (0-0.2) Nucleated Red Blood Cells 0.0 % Sodium Level 145 mmol/L (136-145) Potassium Level 3.2 mmol/L (3.5-5.1) Chloride Level 109 mmol/L (98-107) Carbon Dioxide Level 26 mmol/L (20-31) Anion Gap 10 (5-15) Blood Urea Nitrogen 7 mg/dL (9-23) Creatinine 0.45 mg/dL (0.550-1.02) Glomerular Filtration Rate Calc 98 mL/min (>90) BUN/Creatinine Ratio 15.6 (10.0-20.0) Serum Glucose 94 mg/dL (74-106) Calcium Level 8.2 mg/dL (8.7-10.4) POC Glucose 144 mg/dl (70-106) Total Bilirubin 0.7 mg/dL (0.2-1.0) Aspartate Amino Transferase (AST) 20 U/L (13-40) Alanine Aminotransferase (ALT) 10 U/L (7-40) Alkaline Phosphatase 79 U/L (46-116) Total Protein 5.7 g/dL (5.7-8.2) Albumin 3.4 g/dL (3.2-4.8) Lactic Acid Level 1.4 mmol/L (0.4-2.0) Troponin I High Sensitivity 3 ng/L (</=34) Test 06/11/25 17:46 06/11/25 16:15 Urine Color Yellow (Yellow) Urine Clarity Clear (Clear) Urine pH 6.0 (5.0-9.0) Urine Specific [place] 1.026 (1.001-1.035) Urine Protein 1+ (Negative) Urine Ketones 1+ (Negative) Urine Blood Negative /uL (Negative) Urine Nitrite Negative (Negative) Urine Bilirubin Negative (Negative) Urine Urobilinogen 4 mg/dL (Negative) Urine Leukocyte Esterase 2+ /uL (Negative) Urine RBC 2 /hpf (0 - 4) Urine Microscopic WBC 3 /HPF (0-5) Urine Squamous Epithelial Cells Few /hpf (<5) Urine Bacteria Few /hpf (None Seen) Urine Mucus Few (None Seen) Urine Glucose Normal mg/dL (Normal) Prothrombin Time 11.3 sec (9.3-11.8) Prothrombin Time INR 1.07 (0.9-1.15) Activated Partial Thromboplast Time 29.7 SEC (24.5-34.5) Lipase 26 U/L (12-53) Other Laboratory Tests 06/15/25 05:21 Brief Hx & Hospital Course: 79 years old female with past medical history of diabetes mellitus and hypertension who presented to [facility] ED with complaint of acute abdominal pain. Patient reports that she has been experiencing intermittent abdominal pain associated with nausea, vomiting, chest pain, rating 710 numeric scale, getting worse that prompted this visit. Patient was seen and evaluated in the ED, laboratory data shows WBC 21.4, platelets 355, sodium 142, potassium 3.8, BUN 14, creatinine 0.54, GFR 94, glucose 134, calcium 9.1, lactic acid 2.6 trending down to 1.4, troponin 4, lipase 26, blood pressure 202/76 trending down to 164/73, heart rate 92, temperature 98.1 F, O2 saturation 97% on room air. Urinalysis positive for urinary tract infection. Abdomen/pelvis CT revealing mild wall thickening of the ascending colon and irregular wall thickening of the sigmoid colon; this may be infectious/inflammatory or related to previous diverticulitis. Patient was started on IV antibiotic regimen cefepime, please see medication orders section in the computer. On my assessment, daughter at bedside, patient denied chest pain at this moment, no headache, dizziness, diaphoresis, shortness of breaths, no diarrhea, nausea, vomiting, fever, no chills. Patient was admitted for further evaluation and medical management. Had colitis that got better and sepsis resolved Condition at Discharge: Good Final Diagnosis/Problems List Sepsis due to colitis Acute abdominal pain Hypertensive urgency cystitis with hematuria Generalized weakness Discharge Disposition: Home Discharge Instruct/Medications Diet: Regular Activity: No Restrictions, As Tolerated Follow Up/Referral: PCP in 7 days Medications: augmentin Scheduled Amlodipine Besylate (Amlodipine Besylate), 1 TAB PO DAILY, (Reported) Amoxicillin & Pot Clavulanate (Augmentin Tablet), 875 MG PO BID Aspirin (Aspirin Low Dose), 1 TAB PO DAILY, (Reported) Citalopram Hydrobromide (Celexa), 1 TAB PO DAILY, (Reported) Clonidine Hydrochloride (Clonidine Hcl), 0.1 MG PO BID, (Reported) Lansoprazole (Lansoprazole), 1 CAP PO DAILY, (Reported) Losartan Potassium (Losartan Potassium), 1 TAB PO DAILY, (Reported) Metformin Hydrochloride (Metformin Hcl), 1 TAB PO BID, (Reported) Discharge Statement: "Patient was advised to return to the ER or call 911 if any headaches, dizziness, shortness of breath, chest pain, abdominal pain, bleeding, fevers, or worsening of medical condition. Patient was counseled about treatment plan, medications, possible side effects, patientverbalized understanding. All questions were answered to the best of my ability. This discharge took greater then 30 minutes in planning, reviewing documentation, counseling the patient, and discussing with other team members." ASSESSMENT ASSESSMENT Assessment colitis Date of Service: Jun 15, 2025 Billing Provider: LIYAH DOYLE MD Common Visit Codes: [id number] DISCH DAY >30min LIYAH DOYLE MD Jun 15, 2025 10:48
[2025-06-15 14:43] VITALS: BP 147/68; PULSE 65
== END 2025-06-15 16:10 | disposition home or self-care (01) | DRG 872 ==
LOC: ER 15:35 → OVERFLOW 21:28 → TELE-WESTW 23:19
PROVIDERS: ADMIT Hospitalist; ATTEND Hospitalist
DX: A41.9 Sepsis, unspecified organism (principal); I16.0 Hypertensive urgency; K57.32 Diverticulitis of large intestine without perforation or abscess without bleeding; N30.91 Cystitis, unspecified with hematuria; E11.9 Type 2 diabetes mellitus without complications; N20.1 Calculus of ureter; A09 Infectious gastroenteritis and colitis, unspecified; I10 Essential (primary) hypertension; F17.210 Nicotine dependence, cigarettes, uncomplicated; K63.89 Other specified diseases of intestine; Z90.710 Acquired absence of both cervix and uterus
CPT/HCPCS: 36415; 71045; 74176; 80048; 80053; 81001; 82962; 83605; 83690; 84484; 85025; 85610; 85730; 87040; 87086; 96365; 96375; 99291; G0378; J2405; J3490